=== PATIENT | male | born 1990 | race Caucasian/White ===

== ENCOUNTER 2017-11-27 23:21 | Emergency (ER) | payer OTHER ==
[2017-11-27] MEDS ORDERED: methylPREDNISolone NA SUCC 125 MG/2 ML VIAL IVPB ONE (23:23)
[2017-11-27] MEDS ORDERED: methylPREDNISolone NA SUCC 125 MG/2 ML VIAL ONE (23:25)
[2017-11-27 23:49] VITALS: BP 125/86; PULSE 86; TEMP 98.7; BMI 22.5
--- NOTE | 2017-11-28 01:27 | PDOC ---
History of Present Illness - General Chief Complaint: Allergic Reaction Stated Complaint: ALLERGIC RX Time Seen by Provider: 11/27/17 23:24 History Source: Patient Exam Limitations: No Limitations - History of Present Illness Initial Comments: 11/28/17 06:37 presents with swollen eyes, rash on upper arms, and feeling that throat is closing recently started NSAIDs for pericarditis Timing/Duration: 1 hour Severity: severe Modifying Factors: improves with: eating, medication Associated Symptoms: reports: rash. denies: cough, fever/chills, nausea/ vomiting Past History - Past Medical History Allergies/Adverse Reactions: Allergies Allergy/AdvReac Type Severity Reaction Status Date / Time metoclopramide [From Reglan] AdvReac Verified 11/24/17 07:36 Home Medications: Ambulatory Orders Diphenhydramine [Benadryl -] 50 mg PO QID PRN #20 capsule 11/28/17 Epinephrine [Epipen] 0.3 mg IJ ONCE PRN #1 auto.injct 11/28/17 predniSONE [Deltasone -] 40 mg PO DAILY #6 tablet 11/28/17 Cardiac Disorders: Yes (?PERICARDITIS) COPD: No - Suicide/Smoking/Psychosocial Hx Smoking History: Never smoked Have you smoked in the past 12 months: No Information on smoking cessation initiated: No Hx Alcohol Use: Yes (OCCAS.) Drug/Substance Use Hx: Yes (MARIJUANA) Substance Use Type: Marijuana Review of Systems - Review of Systems All Other Systems: Reviewed and Negative *Physical Exam - Vital Signs Last Vital Signs Temp Pulse Resp BP Pulse Ox 98.7 F 86 18 125/86 99 11/27/17 23:22 11/27/17 23:22 11/27/17 23:22 11/27/17 23:22 11/27/17 23:22 - Physical Exam General Appearance: Yes: Nourished, Appropriately Dressed HEENT: positive: Pharynx Normal, Other (edema throughout periorbital area) Neck: negative: Lymphadenopathy (R), Lymphadenopathy (L) Respiratory/Chest: positive: Lungs Clear, Normal Breath Sounds Cardiovascular: positive: Regular Rhythm Lymphatic: negative: Adenopathy Musculoskeletal: positive: Normal Inspection Integumentary: positive: Other (papules on upper inner arms). negative: Hives ED Treatment Course - Medications Given in the ED: ED Medications Discontinued Medications Generic Name Dose Route Start Last Admin Trade Name Freq PRN Reason Stop Dose Admin Diphenhydramine HCl 50 mg 11/27/17 23:23 11/27/17 23:36 Benadryl Injection - IVPUSH 11/27/17 23:24 50 mg ONCE ONE Administration Methylprednisolone Sodium Succinate 125 mg 11/27/17 23:23 11/27/17 23:36 Solu-Medrol - IVPB 11/27/17 23:24 125 mg ONCE ONE Administration Medical Decision Making - Medical Decision Making 11/28/17 06:39 allg rxn unknown precippitant improved after mgmt in ED with steroids and anti-histamines counseled re use of epipen allergy fu *DC/Admit/Observation/Transfer Diagnosis at time of Disposition: Allergic reaction Qualifiers: Encounter type: initial encounter Qualified Code(s): T78.40XA - Allergy, unspecified, initial encounter - Discharge Dispostion Disposition: HOME Condition at time of disposition: Stable - Prescriptions Prescriptions: Diphenhydramine [Benadryl -] 50 mg PO QID PRN #20 capsule PRN Reason: pruritis Epinephrine [Epipen] 0.3 mg IJ ONCE PRN #1 auto.injct PRN Reason: allergic reaction predniSONE [Deltasone -] 40 mg PO DAILY #6 tablet - Referrals Referrals: Seamus Quinn [Primary Care Provider] - Call tomorrow - Patient Instructions Printed Discharge Instructions: DI for Adverse Drug Reaction -- Allergic - Post Discharge Activity
== END 2017-11-28 01:25 | disposition home or self-care (01) ==
LOC: FER 23:21
PROC: 3E033GC Introduction of Other Therapeutic Substance into Peripheral Vein, Percutaneous Approach (ICD-10-PCS; principal; 2017-11-27)
DX: T78.40XA Allergy, unspecified, initial encounter (principal)
CPT/HCPCS: 99281-25

== ENCOUNTER 2018-06-15 20:14 | Emergency (ER) | payer OTHER ==
[2018-06-15 20:22] VITALS: BP 132/71; PULSE 84; TEMP 98.4; BMI 22.5
[2018-06-15] MEDS ORDERED: PANTOPRAZOLE 40 MG TABLET (FP) PO ONE (20:44)
[2018-06-15] MEDS ORDERED: MAG HYDROX/AL HYDROX/SIMETH 30 ML UNIT-DOSE CUP PO ONE (20:45)
--- NOTE | 2018-06-15 20:47 | PDOC ---
History of Present Illness - General Chief Complaint: Pain, Acute Stated Complaint: LLQ PAIN SINCE THURSDAY Time Seen by Provider: 06/15/18 20:16 - History of Present Illness Initial Comments: 06/15/18 20:48 Patient is a 28 year old male with no significant past medical history who presents to the ED with complaints of left lower quadrant abdominal pain that began about 4 days ago. Patient reports experiencing LLQ pain that he states is intermittent and is increased when he lies flat and stretches. He reports experiencing 1 episode of diarrhea on thursday. Since then has not had diarrhea but stools have been soft. He denies F/C. Denies N/V. Denies constipation. Denies scrotal pain or swelling. Denies chest pain, Sob. Denies contact with sick individuals, out of state travelling. Denies fevers, chills. Denies any other symptoms. Allergies: None Social history: No smoking. Social alcohol use. No illicit drugs. Surgical history: None PMD: Dr. Pickard Past History - Past Medical History Allergies/Adverse Reactions: Allergies Allergy/AdvReac Type Severity Reaction Status Date / Time metoclopramide [From Reglan] AdvReac Verified 11/24/17 07:36 Home Medications: Ambulatory Orders Diphenhydramine [Benadryl -] 50 mg PO QID PRN #20 capsule 11/28/17 Epinephrine [Epipen] 0.3 mg IJ ONCE PRN #1 auto.injct 11/28/17 predniSONE [Deltasone -] 40 mg PO DAILY #6 tablet 11/28/17 Cardiac Disorders: Yes (?PERICARDITIS) COPD: No Other medical history: DENIES - Suicide/Smoking/Psychosocial Hx Smoking History: Never smoked Have you smoked in the past 12 months: No Information on smoking cessation initiated: No Hx Alcohol Use: Yes (OCCAS.) Drug/Substance Use Hx: Yes (WEED DAILY) Substance Use Type: Marijuana Review of Systems - Review of Systems Comments:: 06/15/18 20:50 GENERAL/CONSTITUTIONAL: No fever or chills. No weakness. HEAD, EYES, EARS, NOSE AND THROAT: No change in vision. No ear pain or discharge. No sore throat. CARDIOVASCULAR: No chest pain or shortness of breath. RESPIRATORY: No cough, wheezing, or hemoptysis. GASTROINTESTINAL: +Left lower quadrant abdominal pain. + diarrhea. No nausea, vomiting, or constipation. GENITOURINARY: No dysuria, frequency, or change in urination. MUSCULOSKELETAL: No joint or muscle swelling or pain. No neck or back pain. SKIN: No rash NEUROLOGIC: No headache, vertigo, loss of consciousness, or change in strength/ sensation. ENDOCRINE: No increased thirst. No abnormal weight change. HEMATOLOGIC/LYMPHATIC: No anemia, easy bleeding, or history of blood clots. ALLERGIC/IMMUNOLOGIC: No hives or skin allergy. *Physical Exam - Vital Signs Last Vital Signs Temp Pulse Resp BP Pulse Ox 98.4 F 84 16 132/71 100 06/15/18 20:17 06/15/18 20:17 06/15/18 20:17 06/15/18 20:17 06/15/18 20:17 - Physical Exam Comments: 06/15/18 20:51 GENERAL: Awake, alert, and fully oriented, in no acute distress. HEAD: No signs of trauma EYES: PERRLA, EOMI, sclera anicteric, conjunctiva clear ENT: Auricles normal inspection, hearing grossly normal, nares patent, oropharynx clear without exudates. Moist mucosa NECK: Nontender, no stepoffs, Normal ROM, supple, no lymphadenopathy, JVD, or masses LUNGS: Breath sounds equal, clear to auscultation bilaterally. No wheezes, and no crackles HEART: Regular rate and rhythm, normal S1 and S2, no murmurs, rubs or gallops ABDOMEN: Soft, nontender, normoactive bowel sounds. No guarding, no rebound. No masses EXTREMITIES: Normal range of motion, no edema. No clubbing or cyanosis. No cords, erythema, or tenderness NEUROLOGICAL: Cranial nerves II through XII intact. 5/5 strength and sensation in all extremities, Normal speech, normal gait, normal cerebellar function SKIN: Warm, Dry, normal turgor, no rashes or lesions noted. Moderate Sedation - Procedure Monitoring Vital Signs: Procedure Monitoring Vital Signs Temperature 98.4 F 06/15/18 20:17 Pulse Rate 84 06/15/18 20:17 Respiratory Rate 16 06/15/18 20:17 Blood Pressure 132/71 06/15/18 20:17 O2 Sat by Pulse Oximetry (%) 100 06/15/18 20:17 Medical Decision Making - Medical Decision Making 06/15/18 20:41 28 M with no PMH presenting with intermittent LLQ pain as well as loose stools x 3 days. Suspect possible viral gastroenteritis. Possible msk pain given exacerbation with stretching. Lower suspicion for colitis/diverticulitis as pt with completely benign abdominal exam. Normal scrotal exam - no evidence of torsion. No CVAT to suggest kidney stone. No RLQ pain to suggest appy. - GI cocktail - F/u PMD and GI Pt is well appearing, with normal vitals. Clinically stable for DC at this time. I discussed the physical exam findings, ancillary test results and final diagnoses with the patient. I answered all of the patient's questions. The patient was satisfied with the care received and felt comfortable with the discharge plan and treatment plan. The patient agrees to follow up with the primary care physician within 24-72 hours. *DC/Admit/Observation/Transfer Diagnosis at time of Disposition: Diarrhea, Left lower quadrant pain, Belching - Discharge Dispostion Condition at time of disposition: Stable - Referrals Referrals: Otf Jimenez MD [Staff Physician] - - Patient Instructions Printed Discharge Instructions: DI for Abdominal Pain-Adult Additional Instructions: Your abdominal pain and loose stools are likely due to a viral infection. Avoid greasy or spicy foods to prevent upsetting your stomach. If you develop worsening pain, persistent pain, vomiting, fevers, or any other concerning symptoms, return to the ER immediately. Otherwise, take the nexium as prescribed and follow up with a generation technologist within 1 week. If you do not have one, you can call the number provided to make an appointment. - Post Discharge Activity Forms/Work/School Notes: Back to Work - Attestations Physician Attestion: 06/15/18 20:48 I, Dr. Cordell Perez MD, attest that this document has been prepared under my direction and personally reviewed by me in its entirety. I further attest, that it accurately reflects all work, treatment, procedures and medical decision -making performed by me.
[2018-06-15] MEDS ORDERED: PANTOPRAZOLE 40 MG TABLET (FP) ONE (20:53)
[2018-06-15] MEDS ORDERED: MAG HYDROX/AL HYDROX/SIMETH 30 ML UNIT-DOSE CUP ONE (20:53)
== END 2018-06-15 20:57 | disposition home or self-care (01) ==
LOC: FER 20:14
DX: R10.32 Left lower quadrant pain (principal); R19.7 Diarrhea, unspecified; R14.2 Eructation
CPT/HCPCS: 99281-25